=== PATIENT | female | born 1965 | race Hispanic/Latino ===

== ENCOUNTER 2016-05-29 13:38 | Observation (INO) | payer SELFPAY ==
[~2016-05-29] VITALS: Ht 160 cm; Wt 107.2 kg
[2016-05-29] VITALS (10 sets, daily range): BP systolic 112–132; BP diastolic 53–79
[~2016-05-29 13:38] MED LIST: ACETAMIN500 M1; ADVIL200 MG OR; AMPICILLIN500 MG PO; BAYER500 MG OR; CIPRO500 MG PO; CLARITHROMYC500 M2 PO; EQ OMEPRAZOLE20 MG PO; NAPROSYN500 MG OR; NAPROSYN500 MG PO; NO MEDS; PROMETHAZINE25 MG OR; TUMS500 MG; TYLENOL500 MG OR; ULTRAM50 MG OR
--- NOTE | 2016-05-29 14:00 | NUR ---
PT PATRICIA FOR TREATMENT WITH A STEADY GAIT
[2016-05-29 14:45] LABS: HEMATOCRIT 27.6 % (37.0-47.0); HEMOGLOBIN 7.2 g/dl (12.0-16.0); IMMATURE GRANULOCYTES 0.7 % (0.0-1.0); MEAN CELL VOLUME 57.7 fL CALC (80.0-100.0); MEAN CORPUSCULAR HGB 15.1 pG CALC (26.0-32.0); MEAN CORPUSCULAR HGB CONC 26.1 g/L CALC (32.0-36.0); NEUT# 5.88 thou/uL (2.00-7.15); RED BLOOD COUNT 4.78 mill/uL (4.20-5.60); RED CELL DISTRI WIDTH 19.9 % (11.5-15.5); URINE BILIRUBIN - DIPSTICK NEGATIVE (NEGATIVE); URINE BLOOD DIPSTICK TRACE-INTACT (NEGATIVE); URINE CLARITY CLEAR; URINE COLOR YELLOW; URINE GLUCOSE - DIPSTICK NEGATIVE (NEGATIVE); URINE KETONE NEGATIVE (NEGATIVE); URINE LEUK ESTERASE NEGATIVE (NEGATIVE); URINE NITRITE - DIPSTICK NEGATIVE (Negative); URINE PROTEIN - DIPSTICK NEGATIVE (NEG-TRACE); URINE UROBILINOGEN - DIPSTICK 0.2 E.U./dL (0.2)
--- NOTE | 2016-05-29 15:00 | NUR ---
PT AMBULATORY TO THE RESTROOM WITH A STEADY GAIT
[2016-05-29 15:04] LABS: ALBUMIN 4.1 g/dL (3.2-5.0); ALKALINE PHOSPHATASE 112 u/l (38-126); AMYLASE 65 u/l (30-110); ANION GAP 17 (6-22 (CALC)); BILIRUBIN, TOTAL 0.4 mg/dL (0.0-1.4); BUN 12 mg/dL (7-17); BUN/CREATININE RATIO 22 (12-20 (CALC)); CALCIUM 9.2 mg/dL (8.4-10.2); CARBON DIOXIDE 24 mmol/l (22-30); CHLORIDE 105 mmol/l (95-108); CREATININE 0.6 mg/dL (0.5-1.0); GFR > 60 ML/MIN (>=60 (CALC)); GFR FOR AFR.AMER. > 60 ML/MIN (>=60 (CALC)); GLUCOSE 112 mg/dL (65-105); LIPASE 248 u/l (23-300); POTASSIUM 4.2 mmol/l (3.5-5.1); SGOT/AST 64 u/l (14-36); SGPT/ALT 58 u/l (9-52); SODIUM 142 mmol/l (137-146); TOTAL PROTEIN 7.6 g/dL (6.3-8.2)
[2016-05-29 15:15] LABS: MYOGLOBIN 11 ng/mL (0 - 62)
--- NOTE | 2016-05-29 16:50 | NUR ---
VS ON TAR 129/68, HR 82 18, BLOOD TRANSFUSION INFUSING, NO REACTION, SPOKE TO PT ABOUT SIGNS OF A REACTION, REMOTE BESIDE PT, FAMILY MEMEBER AT BEDSIDE
--- NOTE | 2016-05-29 16:54 | NUR ---
PT RESTING QUIETLY ON STRETCHER, VITAL SIGNS STABLE, PT PRBCS INFUSING, REMOTE AT BEDSIDE, WITH FAMILY AT BEDSIDE. SPOKE TO PT ABOUT SIGNS OF A REACTION, PT ACKNOWLEDGED INFORMATION. IV SITE HEALTHY, NO REDNESS NOTED AT SITE
--- NOTE | 2016-05-29 17:04 | NUR ---
WATCHING PT FOR MARIA TERESA COBB. FOR FIRST 15 MIN OF TRANSFUSION, NO REACTION NOTED, PT RESTING QUIETLY, VITAL SIGNS REMAIN STABLE
--- NOTE | 2016-05-29 17:09 | NUR ---
PT TALKING ON PHONE, NO SOB, NO HIVES, NO SIGNS OF REACTION. VITAL SIGNS REMAIN STABLE. WARM BLANKET GIVEN PER REQUEST.
--- NOTE | 2016-05-29 18:26 | NUR ---
PT CPNSUMING MEAL TRAY AWAITING ADMISSION WITH NO SIGNS OF DISTRESS.
--- NOTE | 2016-05-29 19:35 | NUR ---
female pt received to ICU bed 3 (MS gaspar) in stable condition; ambulatory with strong steady gait; admission assessment completed at this time; daughter Emma Blanco at bedside to interpret; pt a&o X3; complaints of bilat lower quad pain/sharp rating 5/10; denies n/v; c/c abd pain x3-4 days with nausea; resp even and unlabored; lungs clear bilat; skin color wnl; ra; hr reg; strong pulses; no edema noted; sr on monitor; abd soft/distended with bs present; no bm noted per investment underwriter; pt voiding clear yellow urine without complication; #20 in lac patent with prbc's infusing without complication; no redness or edema noted at site; no s/sx of reaction in regards to transfusion; plan of care explained; pt educated on transfusion reaction; call light system and bed explained; call light within reach; will continue to monitor
--- NOTE | 2016-05-29 19:35 | NUR ---
Admission Note Report Given to: EWRIN Transported by: Wheelchair X Stretcher Transported with: X Nurse Transporter X Patent IV O2 X Endband Cutter Hand PT LEFT ER IN STABL CONDITION
--- NOTE | 2016-05-29 20:33 | NUR ---
Dr Sadler called per check writer salesperson; informed pt with complaints of sharp lower quadrant abd pain rating 5/10; orders received and on chart
--- NOTE | 2016-05-29 20:45 | NUR ---
2nd unit of prbc's completed; no s/s of reaction noted; iv flushed and patent; tubing changed; pt denies needs; medicted with toradol as per orders for complaints of abd pain rating 7/10; multiple family remains at bedside; call light within reach; will continue to monitor
--- NOTE | 2016-05-29 21:04 | NUR ---
2nd unit of prbc's verified per protocol at bedside; possible s/sx reaction explained including chest pain, rash, itching, sob and not feeling right; family remains at bedside; engineering writer at bedside; sr on monitor; will continue to monitor
--- NOTE | 2016-05-29 22:05 | NUR ---
resting with eyes closed; no distress noted; easily aroused; VSS; sr on monitor; iv patent; no redness or edema noted at site; no s/sx of transfusion reaction noted; will continue to monitor
--- NOTE | 2016-05-29 23:25 | NUR ---
2nd unit of prbc's completed; no s/s of reaction noted; iv flushed and patent; ivf infusing as per orders; assisted to bsc; voiding without difficulty; alex hose removed per pt request/uncomfortable; sr on monitor; call light within reach; will continue to monitor
[2016-05-30 00:02] VITALS: BP 107/73
--- NOTE | 2016-05-30 02:04 | NUR ---
resting with eyes closed; no distress noted; will continue to monitor
--- NOTE | 2016-05-30 04:01 | NUR ---
pt sleeping/snoring; easily aroused; complaints of dizziness when awakened; sr on monitor; iv patent; no redness or edema noted at site; no distress noted; call light within reach; will continue to monitor
[2016-05-30 04:02] VITALS: BP 94/62
[2016-05-30 05:17] VITALS: BP 114/67
[2016-05-30 05:43] LABS: HEMATOCRIT 32.8 % (37.0-47.0); HEMOGLOBIN 9.2 g/dl (12.0-16.0); IMMATURE GRANULOCYTES 0.8 % (0.0-1.0); MEAN CORPUSCULAR HGB 17.7 pG CALC (26.0-32.0); NEUT# 4.85 thou/uL (2.00-7.15); RED BLOOD COUNT 5.21 mill/uL (4.20-5.60); RED CELL DISTRI WIDTH 25.5 % (11.5-15.5)
--- NOTE | 2016-05-30 05:57 | NUR ---
resting with eyes closed; sr on monitor; no distress noted; call light within reach
[2016-05-30 07:15] VITALS: BP 121/60
--- NOTE | 2016-05-30 07:15 | NUR ---
PT RESTING IN BED, ALERT AND ORIENTED, ASKING TO GET OOB TO BSC WITH STEADY GAIT, AM ASSESSMENT, COMPLETE SEE INTERVENTIONS, SKIN WARM DRY AND INTACT, NO BREAKDOWN NOTED, VS STABLE PT AFEBRILE, TELE READING SR RATE IN THE 60-70'S, NO EDEMA NOTED, IV SITE INTACT IN RAC, WITH IVF INFUSING AT PRESCRIBED RATE, SAFETY MEASURES REINFORCED WILL CONTINUE TO MONITOR.
[2016-05-30] MEDS ORDERED: B121000 MCG PO (07:36)
[2016-05-30] MEDS ORDERED: FOLIC ACID1 M1 PO (07:36)
[2016-05-30] MEDS ORDERED: FERROUS SULF324 M1 PO (07:36)
--- NOTE | 2016-05-30 07:45 | NUR ---
IN TO SEE PATIENT PLAN OF CARE DISCUSSED INCLUDING D/C TODAY AND FOLLOW UP WITH PRIMARY CARE PHYSICIAN INSTRUCTED, IVF STOPPED PER VERBAL ORDER. WILL CONTINUE TO MONITOR
--- NOTE | 2016-05-30 08:15 | NUR ---
TOLERATED AM MEAL WELL, OFFERS NO NEW COMPLAINTS, TOLERATING DIET WELL, CALL MENDEZ WITHIN REACH, AWARE OF PLANNDE D/C AND PLACED CALL TO DAUGHTER FOR TRANSPORTATION, WILL CONTINUE TO MONITOR.
--- NOTE | 2016-05-30 08:45 | NUR ---
IV SITE REMOVED INTACT PT TOLERATED WITHOUT INCIDENT, PLANNED DISCHARGE THIS AM, DAUGHTER AT BEDSIDE
--- NOTE | 2016-05-30 08:56 | NUR ---
Discharge instructions given. Patient verbalizes understanding of same. Discharged in stable condition via Wheelchair to Home with staff. All belongings sent with pt.
== END 2016-05-30 08:55 | disposition home or self-care (01) | DRG 812 ==
LOC: ENPENDDIS → ED 13:38 → ED-I 14:07 → ED 18:46 → ICU 18:47
PROVIDERS: Emergency Medicine; ADMIT Internal Medicine; ATTEND Internal Medicine
PROC: 30233N1 Transfusion of Nonautologous Red Blood Cells into Peripheral Vein, Percutaneous Approach (ICD-10-PCS; principal; 2016-05-29)
PROC: 30233N1 Transfusion of Nonautologous Red Blood Cells into Peripheral Vein, Percutaneous Approach (ICD-10-PCS; 2016-05-29)
DX: D62 Acute posthemorrhagic anemia (principal); N92.0 Excessive and frequent menstruation with regular cycle
CPT/HCPCS: P9016

== ENCOUNTER 2016-08-10 13:19 | Observation (INO) | payer OTHER ==
[~2016-08-10] VITALS: Ht 160 cm; Wt 101.2 kg
[~2016-08-10 13:19] MED LIST changes: +B121000 MCG PO; +FERROUS SULF324 M1 PO; +FOLIC ACID1 M1 PO
[2016-08-10 15:06] LABS: HEMATOCRIT 39.5 % (37.0-47.0); HEMOGLOBIN 12.4 g/dl (12.0-16.0); IMMATURE GRANULOCYTES 0.5 % (0.0-1.0); MEAN CELL VOLUME 75.4 fL CALC (80.0-100.0); MEAN CORPUSCULAR HGB 23.7 pG CALC (26.0-32.0); MEAN CORPUSCULAR HGB CONC 31.4 g/L CALC (32.0-36.0); NEUT# 7.08 thou/uL (2.00-7.15); RED BLOOD COUNT 5.24 mill/uL (4.20-5.60); RED CELL DISTRI WIDTH 18.2 % (11.5-15.5)
[2016-08-10 15:12] LABS: ALBUMIN 4.2 g/dL (3.2-5.0); ALKALINE PHOSPHATASE 107 u/l (38-126); ANION GAP 15 (6-22 (CALC)); BILIRUBIN, TOTAL 0.4 mg/dL (0.0-1.4); BUN 9 mg/dL (7-17); BUN/CREATININE RATIO 21 (12-20 (CALC)); CALCIUM 9.3 mg/dL (8.4-10.2); CARBON DIOXIDE 24 mmol/l (22-30); CHLORIDE 105 mmol/l (95-108); CREATININE 0.4 mg/dL (0.5-1.0); GFR > 60 ML/MIN (>=60 (CALC)); GFR FOR AFR.AMER. > 60 ML/MIN (>=60 (CALC)); GLUCOSE 133 mg/dL (65-105); POTASSIUM 4.2 mmol/l (3.5-5.1); SGOT/AST 75 u/l (14-36); SGPT/ALT 112 u/l (9-52); SODIUM 139 mmol/l (137-146); TOTAL PROTEIN 7.6 g/dL (6.3-8.2)
[2016-08-10 15:25] LABS: MYOGLOBIN 14 ng/mL (0 - 62)
[2016-08-10 15:53] LABS: AMYLASE 61 u/l (30-110); LIPASE 225 u/l (23-300)
[2016-08-10 16:29] LABS: URINE BILIRUBIN - DIPSTICK NEGATIVE (NEGATIVE); URINE BLOOD DIPSTICK TRACE-INTACT (NEGATIVE); URINE CLARITY CLEAR; URINE COLOR YELLOW; URINE GLUCOSE - DIPSTICK NEGATIVE (NEGATIVE); URINE KETONE NEGATIVE (NEGATIVE); URINE LEUK ESTERASE NEGATIVE (NEGATIVE); URINE NITRITE - DIPSTICK NEGATIVE (Negative); URINE PROTEIN - DIPSTICK NEGATIVE (NEG-TRACE); URINE SPECIFIC GRAVITY <=1.005; URINE UROBILINOGEN - DIPSTICK 0.2 E.U./dL (0.2)
[2016-08-10 18:23] LABS: BARBITURATES NEGATIVE (NEGATIVE); COCAINE NEGATIVE (NEGATIVE); METHADONE NEGATIVE (NEGATIVE); TETRAHYDROCANNABIONOL NEGATIVE (NEGATIVE); TRICYLIC ANTIDEPRESSANTS NEGATIVE (NEGATIVE)
[2016-08-10 18:24] LABS: OXCYCODONE NEGATIVE (NEGATIVE)
[2016-08-10 19:40] VITALS: BP 116/79
[2016-08-10 23:37] VITALS: BP 102/67
[2016-08-11 02:17] LABS: CHOLESTEROL HDL RATIO 3.5 (<4.4 (CALC))
[2016-08-11 04:26] VITALS: BP 118/73
[2016-08-11 07:30] VITALS: BP 106/59
[2016-08-11] MEDS ORDERED: IBUPROFEN600 MG PO (11:35)
== END 2016-08-11 12:30 | disposition home or self-care (01) | DRG 313 ==
LOC: ENPENDDIS → ED 13:19 → ED-I 17:45 → ED 18:10 → MS2 18:11
PROVIDERS: Emergency Medicine; ADMIT Internal Medicine; ATTEND Internal Medicine
DX: R07.9 Chest pain, unspecified (principal); D50.9 Iron deficiency anemia, unspecified; M19.90 Unspecified osteoarthritis, unspecified site; M25.50 Pain in unspecified joint
CPT/HCPCS: G0378; Q9967

== ENCOUNTER 2016-11-16 09:17 | Emergency (ER) | payer SELFPAY ==
[~2016-11-16] VITALS: Ht 160 cm; Wt 120.0 kg
[~2016-11-16 09:17] MED LIST changes: +IBUPROFEN600 MG PO
[2016-11-16] MEDS ORDERED: ADVIL200 MG PO (09:24)
[2016-11-16 09:33] VITALS: BP 108/73
[2016-11-16] MEDS ORDERED: FLEXERIL PO (09:46)
[2016-11-16] MEDS ORDERED: MOTRIN800 MG PO (09:46)
[2016-11-16] MEDS ORDERED: TRAMADOL HYDROC50 MG PO (09:46)
== END 2016-11-16 10:10 | disposition home or self-care (01) | DRG 563 ==
LOC: ED 09:17
DX: S39.012A Strain of muscle, fascia and tendon of lower back, initial encounter (principal); M15.9 Polyosteoarthritis, unspecified; X50.9XXA Other and unspecified overexertion or strenuous movements or postures, initial encounter; Y93.E5 Activity, floor mopping and cleaning

== ENCOUNTER 2017-09-07 17:44 | Emergency (ER) | payer SELFPAY ==
[~2017-09-07] VITALS: Ht 160 cm; Wt 110.0 kg
[~2017-09-07 17:44] MED LIST changes: +ADVIL200 MG PO; +FLEXERIL PO; +MOTRIN800 MG PO; +TRAMADOL HYDROC50 MG PO
[2017-09-07 18:35] LABS: URINE BILIRUBIN - DIPSTICK NEGATIVE (NEGATIVE); URINE BLOOD DIPSTICK MODERATE (NEGATIVE); URINE COLOR ORANGE; URINE GLUCOSE - DIPSTICK 100 mg/dL (NEGATIVE); URINE KETONE NEGATIVE (NEGATIVE); URINE LEUK ESTERASE TRACE (NEGATIVE); URINE PROTEIN - DIPSTICK 100 mg/dL (NEG-TRACE)
[2017-09-07 18:38] LABS: URINE CLARITY CLEAR; URINE NITRITE - DIPSTICK POSITIVE (Negative)
[2017-09-07 18:46] LABS: URINE SQUAMOUS EPITHELIAL CELL FEW EPI/hpf (0-FEW)
[2017-09-07] MEDS ORDERED: CIPROFLOXACN500 MG PO (18:57)
[2017-09-07] MEDS ORDERED: IBUPROFEN600 MG PO (18:57)
[2017-09-07] MEDS ORDERED: ORPHENADRINE100 MG PO (18:57)
[2017-09-07 19:15] VITALS: BP 129/71
== END 2017-09-07 19:15 | disposition home or self-care (01) | DRG 552 ==
LOC: ED 17:44
DX: M43.6 Torticollis (principal); N39.0 Urinary tract infection, site not specified; B96.20 Unspecified Escherichia coli [E. coli] as the cause of diseases classified elsewhere

== ENCOUNTER 2017-10-12 16:10 | Emergency (ER) | payer SELFPAY ==
[~2017-10-12] VITALS: Ht 160 cm; Wt 100.0 kg
[~2017-10-12 16:10] MED LIST changes: +CIPROFLOXACN500 MG PO; +ORPHENADRINE100 MG PO
[2017-10-12] MEDS ORDERED: IBUPROFEN600 MG PO (18:17)
[2017-10-12 18:30] VITALS: BP 131/74
== END 2017-10-12 18:30 | disposition home or self-care (01) | DRG 605 ==
LOC: ED 16:10
DX: S40.012A Contusion of left shoulder, initial encounter (principal); W10.9XXA Fall (on) (from) unspecified stairs and steps, initial encounter; Y92.008 Other place in unspecified non-institutional (private) residence as the place of occurrence of the external cause

== ENCOUNTER 2018-11-02 08:28 | Emergency (ER) | payer SELFPAY ==
[~2018-11-02] VITALS: Ht 160 cm; Wt 90.0 kg
[2018-11-02 09:20] LABS: HEMATOCRIT 39.3 % (37.0-47.0); HEMOGLOBIN 11.9 g/dl (12.0-16.0); IMMATURE GRANULOCYTES 0.5 % (0.0-5.0); MEAN CELL VOLUME 73.6 fL CALC (80.0-100.0); MEAN CORPUSCULAR HGB 22.3 pG CALC (26.0-32.0); MEAN CORPUSCULAR HGB CONC 30.3 g/L CALC (32.0-36.0); NEUT# 5.95 thou/uL (2.00-7.15); RED BLOOD COUNT 5.34 mill/uL (4.20-5.60); RED CELL DISTRI WIDTH 16.4 % (11.5-15.5)
[2018-11-02 09:39] LABS: ALKALINE PHOSPHATASE 130 u/l (38-126); ANION GAP 13 (6-22 (CALC)); BILIRUBIN, TOTAL 0.5 mg/dL (0.0-1.4); BUN 12 mg/dL (7-17); BUN/CREATININE RATIO 31 (12-20 (CALC)); CARBON DIOXIDE 25 mmol/l (22-30); CHLORIDE 105 mmol/l (95-108); CREATININE 0.4 mg/dL (0.5-1.0); GFR > 60 ML/MIN (>=60 (CALC)); GFR FOR AFR.AMER. > 60 ML/MIN (>=60 (CALC)); POTASSIUM 4.8 mmol/l (3.5-5.1); SGOT/AST 59 u/l (14-36); SODIUM 138 mmol/l (137-146); TOTAL PROTEIN 7.6 g/dL (6.3-8.2)
[2018-11-02 09:50] LABS: MYOGLOBIN 16 ng/mL (0 - 62)
[2018-11-02] MEDS ORDERED: TORADOL PO (10:25)
[2018-11-02 10:31] VITALS: BP 104/62
== END 2018-11-02 10:40 | disposition home or self-care (01) | DRG 313 ==
LOC: ED 08:28
PROVIDERS: Family Medicine
DX: R07.89 Other chest pain (principal)

== ENCOUNTER 2019-01-15 08:37 | Emergency (ER) | payer SELFPAY ==
[~2019-01-15] VITALS: Ht 160 cm; Wt 120.0 kg
[~2019-01-15 08:37] MED LIST changes: +TORADOL PO
[2019-01-15 09:34] LABS: URINE BILIRUBIN - DIPSTICK NEGATIVE (NEGATIVE); URINE BLOOD DIPSTICK TRACE-INTACT (NEGATIVE); URINE COLOR YELLOW; URINE GLUCOSE - DIPSTICK NEGATIVE (NEGATIVE); URINE KETONE NEGATIVE (NEGATIVE); URINE LEUK ESTERASE TRACE (NEGATIVE); URINE NITRITE - DIPSTICK NEGATIVE (Negative); URINE PROTEIN - DIPSTICK NEGATIVE (NEG-TRACE); URINE UROBILINOGEN - DIPSTICK 0.2 E.U./dL (0.2)
[2019-01-15 09:38] LABS: HEMATOCRIT 39.5 % (37.0-47.0); HEMOGLOBIN 12.1 g/dl (12.0-16.0); IMMATURE GRANULOCYTES 0.4 % (0.0-5.0); MEAN CELL VOLUME 71.8 fL CALC (80.0-100.0); MEAN CORPUSCULAR HGB CONC 30.6 g/L CALC (32.0-36.0); NEUT# 5.72 thou/uL (2.00-7.15); RED BLOOD COUNT 5.5 mill/uL (4.20-5.60); RED CELL DISTRI WIDTH 16.3 % (11.5-15.5)
[2019-01-15 09:50] LABS: ALBUMIN 3.9 g/dL (3.2-5.0); ALKALINE PHOSPHATASE 145 u/l (38-126); AMYLASE 65 u/l (30-110); ANION GAP 14 (6-22 (CALC)); BILIRUBIN, TOTAL 0.3 mg/dL (0.0-1.4); BUN 13 mg/dL (7-17); BUN/CREATININE RATIO 32 (12-20 (CALC)); CARBON DIOXIDE 21 mmol/l (22-30); CHLORIDE 108 mmol/l (95-108); CREATININE 0.4 mg/dL (0.5-1.0); GFR > 60 ML/MIN (>=60 (CALC)); GFR FOR AFR.AMER. > 60 ML/MIN (>=60 (CALC)); LIPASE 248 u/l (23-300); POTASSIUM 4.8 mmol/l (3.5-5.1); SGOT/AST 38 u/l (14-36); SODIUM 138 mmol/l (137-146); TOTAL PROTEIN 7.4 g/dL (6.3-8.2)
[2019-01-15 10:02] LABS: MYOGLOBIN 14 ng/mL (0 - 62)
[2019-01-15] MEDS ORDERED: ONDANSETRON4 MG PO (11:26)
[2019-01-15] MEDS ORDERED: PROTONIX40 MG PO (11:26)
[2019-01-15] MEDS ORDERED: ULTRAM50 M1 PO (11:26)
[2019-01-15 11:56] VITALS: BP 114/63
== END 2019-01-15 11:57 | disposition home or self-care (01) | DRG 392 ==
LOC: ED 08:37
PROVIDERS: Emergency Medicine
DX: K29.70 Gastritis, unspecified, without bleeding (principal); R10.13 Epigastric pain; K76.0 Fatty (change of) liver, not elsewhere classified
CPT/HCPCS: Q9967; S0164

== ENCOUNTER 2020-04-02 14:56 | Emergency (ER) | payer SELFPAY ==
[~2020-04-02] VITALS: Ht 160 cm; Wt 105.0 kg
[~2020-04-02 14:56] MED LIST changes: +ONDANSETRON4 MG PO; +PROTONIX40 MG PO; +ULTRAM50 M1 PO
[2020-04-02] MEDS ORDERED: TRAMADOL HYDROC50 MG PO (16:22)
[2020-04-02 16:55] VITALS: BP 136/92
== END 2020-04-02 16:55 | disposition home or self-care (01) | DRG 605 ==
LOC: ED 14:56
DX: S00.03XA Contusion of scalp, initial encounter (principal); S50.01XA Contusion of right elbow, initial encounter; E11.9 Type 2 diabetes mellitus without complications; W01.198A Fall on same level from slipping, tripping and stumbling with subsequent striking against other object, initial encounter; Y92.009 Unspecified place in unspecified non-institutional (private) residence as the place of occurrence of the external cause; Z87.11 Personal history of peptic ulcer disease

== ENCOUNTER 2020-09-04 10:16 | Emergency (ER) | payer SELFPAY ==
[~2020-09-04] VITALS: Ht 160 cm; Wt 100.0 kg
[2020-09-04 10:45] VITALS: BP 143/88
[2020-09-04] MEDS ORDERED: ZPAK PO (11:43)
[2020-09-04] MEDS ORDERED: CHERATUSSIN PO (11:43)
== END 2020-09-04 12:01 | disposition home or self-care (01) | DRG 153 ==
LOC: ED 10:16
DX: J06.9 Acute upper respiratory infection, unspecified (principal); E11.9 Type 2 diabetes mellitus without complications; Z87.11 Personal history of peptic ulcer disease; Z20.822 Contact with and (suspected) exposure to COVID-19

== ENCOUNTER 2021-06-23 12:27 | Emergency (ER) | payer SELFPAY ==
[~2021-06-23] VITALS: Ht 160 cm; Wt 127.0 kg
[~2021-06-23 12:27] MED LIST changes: +CHERATUSSIN PO; +ZPAK PO
[2021-06-23 13:04] VITALS: BP 144/94
[2021-06-23 13:40] LABS: HEMATOCRIT 40.2 % (37.0-47.0); HEMOGLOBIN 12.5 g/dl (12.0-16.0); IMMATURE GRANULOCYTES 0.3 % (0.0-5.0); MEAN CORPUSCULAR HGB 24.7 pG CALC (26.0-32.0); MEAN CORPUSCULAR HGB CONC 31.1 g/dL CAL (32.0-36.0); NEUT# 7.34 thou/uL (2.00-7.15); RED BLOOD COUNT 5.07 mill/uL (4.20-5.60); RED CELL DISTRI WIDTH 15.6 % (11.5-15.5)
[2021-06-23 13:49] LABS: MEAN CELL VOLUME 79.3 fL CALC (80.0-100.0)
[2021-06-23 13:52] LABS: ALBUMIN 4.3 g/dL (3.2-5.0); ALKALINE PHOSPHATASE 115 u/l (38-126); AMYLASE 86 u/l (30-110); ANION GAP 10 (6-22 (CALC)); BILIRUBIN, TOTAL 0.3 mg/dL (0.0-1.4); BUN 12 mg/dL (7-17); BUN/CREATININE RATIO 21 (12-20 (CALC)); CHLORIDE 105 mmol/l (95-108); CREATININE 0.6 mg/dL (0.5-1.0); GFR > 60 ML/MIN (>=60 (CALC)); GFR FOR AFR.AMER. > 60 ML/MIN (>=60 (CALC)); LIPASE 167 u/l (23-300); POTASSIUM 3.9 mmol/l (3.5-5.1); SGOT/AST 22 u/l (14-36); SODIUM 139 mmol/l (137-146); TOTAL PROTEIN 7.6 g/dL (6.3-8.2)
[2021-06-23 13:57] LABS: CARBON DIOXIDE 28 mmol/l (22-30)
[2021-06-23 14:04] LABS: MYOGLOBIN 19 ng/mL (0 - 62)
[2021-06-23 14:16] LABS: URINE BILIRUBIN - DIPSTICK NEGATIVE (NEGATIVE); URINE BLOOD DIPSTICK MODERATE (NEGATIVE); URINE COLOR YELLOW; URINE GLUCOSE - DIPSTICK NEGATIVE (NEGATIVE); URINE KETONE NEGATIVE (NEGATIVE); URINE LEUK ESTERASE NEGATIVE (NEGATIVE); URINE PROTEIN - DIPSTICK NEGATIVE (NEG-TRACE); URINE UROBILINOGEN - DIPSTICK 0.2 E.U./dL (0.2)
[2021-06-23 14:17] LABS: URINE NITRITE - DIPSTICK NEGATIVE (Negative)
[2021-06-23] MEDS ORDERED: TYLENOL500 MG PO (14:23)
[2021-06-23] MEDS ORDERED: PHENTERMINE37.5 MG PO (14:23)
[2021-06-23] MEDS ORDERED: ALPRAZOLAM ER0.5 MG PO (14:23)
[2021-06-23] MEDS ORDERED: PIOGLITAZONE HC30 MG (14:23)
[2021-06-23] MEDS ORDERED: IRON325 M1 (14:24)
[2021-06-23 14:25] LABS: URINE SQUAMOUS EPITHELIAL CELL FEW EPI/hpf (0-FEW)
[2021-06-23] MEDS ORDERED: NAPROXEN500 MG PO (15:28)
[2021-06-23] MEDS ORDERED: CYCLOBENZAPRINE10 MG PO (15:28)
[2021-06-23 15:31] VITALS: BP 111/62
[2021-06-23 15:55] VITALS: BP 111/62
== END 2021-06-23 16:01 | disposition home or self-care (01) | DRG 556 ==
LOC: ED 12:27
PROVIDERS: Emergency Medicine
DX: M79.10 Myalgia, unspecified site (principal); I10 Essential (primary) hypertension; E11.9 Type 2 diabetes mellitus without complications; E78.5 Hyperlipidemia, unspecified; Z87.11 Personal history of peptic ulcer disease
CPT/HCPCS: Q9967

== ENCOUNTER 2022-03-08 20:45 | Emergency (ER) | payer SELFPAY ==
[~2022-03-08] VITALS: Ht 160 cm; Wt 120.0 kg
[~2022-03-08 20:45] MED LIST changes: +ALPRAZOLAM ER0.5 MG PO; +CYCLOBENZAPRINE10 MG PO; +IRON325 M1; +NAPROXEN500 MG PO; +PHENTERMINE37.5 MG PO; +PIOGLITAZONE HC30 MG; +TYLENOL500 MG PO
[2022-03-08 21:27] VITALS: BP 121/79
[2022-03-08] MEDS ORDERED: CHOLESTEROL MED (21:43)
[2022-03-08 22:28] LABS: URINE BILIRUBIN - DIPSTICK NEGATIVE (NEGATIVE); URINE BLOOD DIPSTICK TRACE-INTACT (NEGATIVE); URINE COLOR YELLOW; URINE GLUCOSE - DIPSTICK NEGATIVE (NEGATIVE); URINE KETONE NEGATIVE (NEGATIVE); URINE LEUK ESTERASE NEGATIVE (NEGATIVE); URINE NITRITE - DIPSTICK NEGATIVE (Negative); URINE PH 5.5 (4.5-8.0); URINE PROTEIN - DIPSTICK TRACE mg/dL (NEG-TRACE); URINE SPECIFIC GRAVITY >=1.030; URINE UROBILINOGEN - DIPSTICK 0.2 E.U./dL (0.2)
[2022-03-09] MEDS ORDERED: CYCLOBENZAPRINE10 MG PO (00:59)
[2022-03-09] MEDS ORDERED: LORTAB 1010 MG PO (00:59)
[2022-03-09 01:15] VITALS: BP 120/74
[2022-03-10] MEDS ORDERED: LORTAB 1010 MG PO (14:30)
== END 2022-03-09 01:15 | disposition home or self-care (01) | DRG 552 ==
LOC: ED 20:45
PROVIDERS: Emergency Medicine
DX: M47.816 Spondylosis without myelopathy or radiculopathy, lumbar region (principal)

== ENCOUNTER 2023-02-18 18:53 | Emergency (ER) | payer SELFPAY ==
[~2023-02-18 18:53] MED LIST changes: +CHOLESTEROL MED; +FLEXERIL5 M1 PO; +LORTAB 1010 MG PO; +MELOXICAM15 MG PO; +PREDNISONE20 MG PO
[2023-02-19 00:38] VITALS: BP 000/000
== END 2023-02-18 19:30 | disposition left against medical advice (07) | DRG 951 ==
LOC: ED 18:53 → LWOBS 19:07
DX: Z53.21 Procedure and treatment not carried out due to patient leaving prior to being seen by health care provider (principal)

== ENCOUNTER 2024-02-05 21:51 | Emergency (ER) | payer SELFPAY ==
[~2024-02-05] VITALS: Ht 160 cm; Wt 90.0 kg
[2024-02-05] MEDS ORDERED: ASPIRINCHW 81MG PO (22:28)
[2024-02-05] MEDS ORDERED: GABAPENTIN100 MG PO (22:29)
[2024-02-05] MEDS ORDERED: PENTOXIFYLLI400 M1 PO (22:30)
[2024-02-05 22:32] VITALS: BP 124/72
[2024-02-05] MEDS ORDERED: MORPHINE SULFATE 4 MG/ML VIAL IV ONE (22:55)
[2024-02-05] MEDS ORDERED: ONDANSETRON HCl 4 MG/2 ML SDV IV ONE (22:55)
[2024-02-05] MEDS ORDERED: SODIUM CHLORIDE 0.9% 1,000 ML IV ONE ×2 (22:55)
[2024-02-05 23:00] VITALS: BP 131/86
[2024-02-05] MEDS ORDERED: ISOVUE-300 (Iopamidol) 100 ML SDV IV ONE (23:00)
[2024-02-05 23:30] VITALS: BP 119/70
[2024-02-05 23:33] LABS: BASO% 0.4 % (0-3); HEMATOCRIT 37.4 % (37.0-47.0); HEMOGLOBIN 11.5 g/dl (12.0-16.0); IMMATURE GRANULOCYTES 0.3 % (0.0-5.0); LYMPH% 26.3 % (15-41); MEAN CELL VOLUME 75.3 fL CALC (80.0-100.0); MEAN CORPUSCULAR HGB 23.1 pG CALC (26.0-32.0); MEAN CORPUSCULAR HGB CONC 30.7 g/dL CAL (32.0-36.0); MONO% 6.3 % (2-13); NEUT# 6.37 thou/uL (2.00-7.15); NEUT% 64.7 % (42-76); RED BLOOD COUNT 4.97 mill/uL (4.20-5.60); RED CELL DISTRI WIDTH 15.9 % (11.5-15.5)
[2024-02-05 23:33] LABS: URINE BILIRUBIN - DIPSTICK Negative (NEGATIVE); URINE BLOOD DIPSTICK Trace-intact (NEGATIVE); URINE CLARITY Clear; URINE GLUCOSE - DIPSTICK Negative (NEGATIVE); URINE KETONE Trace mg/dL (NEGATIVE); URINE LEUK ESTERASE Negative (Negative); URINE NITRITE - DIPSTICK Negative (Negative); URINE PROTEIN - DIPSTICK 100 mg/dL (NEG-TRACE); URINE SPECIFIC GRAVITY >=1.030; URINE UROBILINOGEN - DIPSTICK 0.2 E.U./dL (0.2)
[2024-02-05 23:34] LABS: URINE COLOR Yellow
[2024-02-05 23:39] LABS: URINE BACTERIA FEW hpf; URINE EPITHELIAL CELLS MANY EPI/hpf (0-FEW)
[2024-02-05 23:40] LABS: URINE MUCUS MODERATE hpf (NONE-FEW)
[2024-02-05 23:43] LABS: ALBUMIN 3.9 g/dL (3.2-5.0); CREATININE 0.8 mg/dL (0.5-1.0); POTASSIUM 3.9 mmol/l (3.5-5.1)
[2024-02-05 23:45] LABS: BILIRUBIN, TOTAL 0.3 mg/dL (0.02-1.3)
[2024-02-06] MEDS ORDERED: MACROBID100 M1 PO (01:35)
[2024-02-06] MEDS ORDERED: CELEBREX200 MG PO (01:35)
[2024-02-06] MEDS ORDERED: FLEXERIL5 M1 PO (01:37)
[2024-02-06] MEDS ORDERED: DEXAMETHASONE SOD. PHOSPHATE 10 MG/ML VIAL IV ONE ×2 (01:40→01:45)
[2024-02-06] MEDS ORDERED: MORPHINE SULFATE 4 MG/ML VIAL IV ONE (01:45)
[2024-02-06] MEDS ORDERED: NITROFURANTOIN 100 MG/CAP PO ONE (02:15)
[2024-02-06 03:11] VITALS: BP 134/86
== END 2024-02-06 02:10 | disposition home or self-care (01) | DRG 538 ==
LOC: ED 21:51
PROVIDERS: Emergency Medicine
DX: S76.912A Strain of unspecified muscles, fascia and tendons at thigh level, left thigh, initial encounter (principal); R30.0 Dysuria; E11.9 Type 2 diabetes mellitus without complications; E78.5 Hyperlipidemia, unspecified; E66.01 Morbid (severe) obesity due to excess calories; X58.XXXA Exposure to other specified factors, initial encounter
CPT/HCPCS: J1100; J2405; Q9967

== ENCOUNTER 2024-02-24 23:18 | Emergency (ER) | payer SELFPAY ==
[~2024-02-24] VITALS: Ht 160 cm; Wt 122.5 kg
[~2024-02-24 23:18] MED LIST changes: +ASPIRINCHW 81MG PO; +CELEBREX200 MG PO; +GABAPENTIN100 MG PO; +MACROBID100 M1 PO; +PENTOXIFYLLI400 M1 PO
[2024-02-25] MEDS ORDERED: KETOROLAC TROMETHAMINE 30 MG/ML SDV IM ONE (00:55)
[2024-02-25] MEDS ORDERED: DEXAMETHASONE SOD. PHOSPHATE 10 MG/ML VIAL IM ONE (00:55)
[2024-02-25 01:47] LABS: URINE BILIRUBIN - DIPSTICK Negative (NEGATIVE); URINE BLOOD DIPSTICK Negative (NEGATIVE); URINE COLOR Yellow; URINE GLUCOSE - DIPSTICK Negative (NEGATIVE); URINE KETONE Negative (NEGATIVE); URINE LEUK ESTERASE Negative (NEGATIVE); URINE NITRITE - DIPSTICK Negative (Negative); URINE PROTEIN - DIPSTICK Negative (NEG-TRACE); URINE SPECIFIC GRAVITY 1.015; URINE UROBILINOGEN - DIPSTICK 0.2 E.U./dL (0.2)
[2024-02-25] MEDS ORDERED: DECADRON4 MG PO (03:14)
[2024-02-25] MEDS ORDERED: ONDANSETRON 4 MG/TAB ODT PO ONE (03:30)
[2024-02-25 04:10] VITALS: BP 136/78
== END 2024-02-25 04:10 | disposition home or self-care (01) | DRG 552 ==
LOC: ED 23:18
PROVIDERS: Family Medicine
DX: M54.16 Radiculopathy, lumbar region (principal); E11.9 Type 2 diabetes mellitus without complications; E78.5 Hyperlipidemia, unspecified
CPT/HCPCS: J1100